=== PATIENT | male | born 1960 | race Hispanic/Latino ===

== ENCOUNTER 2018-06-27 08:41 | Emergency (ER) | payer OTHER, SELFPAY ==
--- NOTE | 2018-06-27 10:18 | RAD REPORT ---
EXAM DESCRIPTION: RAD - Knee Left 3 View - 06/27/2018 9:36 am CLINICAL HISTORY: PAIN COMPARISON: No comparisonsNo comparisons FINDINGS: A small suprapatellar joint effusion is seen. No acute fracture or dislocation is present. Prominent osteophyte projects off the superior pole the patella.
--- NOTE | 2018-06-27 10:45 | ER ---
Nurse's Notes [facility] Name: Alejandro Kendall Age: 57 yrs Sex: Male : 1960 Arrival Date: 06/27/2018 Time: 08:44 Bed 8 Private MD: None, None Diagnosis: Pain in left knee Presentation: 06/27 09:01 Presenting complaint: Patient states: L knee pain x 2 months after fall. ROM intact. ss Transition of care: patient was not received from another setting of care. Onset of symptoms was April 2018. Risk Assessment: Do you want to hurt yourself or someone else? Patient reports no desire to harm self or others. Initial Sepsis Screen: Does the patient meet any 2 criteria? No. Patient's initial sepsis screen is negative. Does the patient have a suspected source of infection? No. Patient's initial sepsis screen is negative. Care prior to arrival: None. 09:01 Method Of Arrival: Ambulatory ss 09:01 Acuity: EUFEMIA 4 ss Historical: - Allergies: 09:04 No Known Allergies; ss - Home Meds: 09:04 None [Active]; ss - PMHx: 09:04 None; ss - PSHx: 09:04 Hernia repair; ss - Immunization history:: Adult Immunizations up to date. - Social history:: Smoking status: Patient/guardian denies using tobacco. - Ebola Screening: : Patient denies exposure to infectious person Patient denies travel to an Ebola-affected area in the 21 days before illness onset. Screenin:06 Abuse screen: Denies threats or abuse. Denies injuries from another. Nutritional ss screening: No deficits noted. Tuberculosis screening: Never had TB. Fall Risk None identified. Assessment: 09:06 General: Appears in no apparent distress. comfortable, Behavior is calm, cooperative, ss Denies fever, feeling ill, fatigue, chills. Pain: Complains of pain in left knee Pain currently is 7 out of 10 on a pain scale. at worst was 10 out of 10 on a pain scale. Pain began "2 months ago" Is continuous, Aggravated by standing over long periods of time. Neuro: Level of Consciousness is awake, alert, obeys commands, Oriented to person, place, time, situation. Cardiovascular: Heart tones S1 S2 present Capillary refill < 3 seconds is brisk in bilateral fingers Patient's skin is warm and dry. Respiratory: Airway is patent Trachea midline Respiratory effort is even, unlabored, Respiratory pattern is regular, symmetrical. GI: Patient currently denies abdominal pain, diarrhea, nausea, vomiting. : No deficits noted. EENT: Throat is clear. Derm: Skin is intact, is healthy with good turgor, Skin is pink, warm \\T\\ dry. normal. Musculoskeletal: Circulation, motion, and sensation intact. Capillary refill < 3 seconds, is brisk, in bilateral fingers. Range of motion: intact in all extremities, Swelling absent. 10:05 Reassessment: Patient appears in no apparent distress at this time. Patient and/or ss family updated on plan of care and expected duration. Pain level reassessed. Patient is alert, oriented x 3, equal unlabored respirations, skin warm/dry/pink. Vital Signs: 09:04 BP 138 / 74; Pulse 73; Resp 16; Temp 97.0(TE); Pulse Ox 98% on R/A; Weight 102.06 kg; ss Height 5 ft. 10 in. (177.80 cm); Pain 10/10; 09:04 Body Mass Index 32.28 (102.06 kg, 177.80 cm) ss ED Course: 08:44 Patient arrived in ED. mr 08:44 None, None is Private Physician. mr 08:50 [facility] pm1 08:50 Kenneth Markham MD is Attending Physician. pm1 09:01 Do Vines, IVANA is Primary Nurse. ss 09:02 Triage completed. ss 09:04 Arm band placed on right wrist. ss 09:06 Patient has correct armband on for positive identification. Bed in low position. Call ss light in reach. 09:36 X-ray completed. Portable x-ray completed in exam room. Patient tolerated procedure mh1 well. 09:36 Knee Left 3 View XRAY In Process Unspecified. EDMS 10:44 Shashank Gupta MD is Referral Physician. pm1 10:56 No provider procedures requiring assistance completed. Patient did not have IV access ss during this emergency room visit. 10:58 Kenji wrap to left knee. ss Administered Medications: 10:50 Drug: Motrin 600 mg Route: PO; ss 10:56 Follow up: Response: Medication administered at discharge. Outcome: 10:44 Discharge ordered by . pm1 10:56 Discharged to home ambulatory. 10:56 Condition: good 10:56 Discharge instructions given to patient, Instructed on discharge instructions, follow up and referral plans. medication usage, Demonstrated understanding of instructions, follow-up care, medications, Pt verbalized understanding importance of following up with ortho specialist, but states since he doesn't have insurance he may not be able to afford the exam and may not follow up. Pt was hoping to have MRI obtained of knee in the ER. Pt educated on local community resources/ clinics. 10:58 Patient left the ED. ss Signatures: Dispatcher [employer] EDMI Gabriella Fajardo mr MartinezJazlyn 1 Do Vines, IVANA RN Jose J Morin, GENE TERMINATION CLERK pm1
--- NOTE | 2018-06-27 10:45 | EDPHYS ---
Physician Documentation [facility] Name: Alejandro Kendall Age: 57 yrs Sex: Male : 1960 Arrival Date: 06/27/2018 Time: 08:44 Bed 8 Private MD: None, None ED Physician Kenneth Markham HPI: 06/27 09:04 This 57 yrs old Male presents to ER via Ambulatory with complaints of Left pm1 knee pain. 09:04 The patient presents with pain. The complaints affect the left knee. Context: The pm1 problem was sustained at home, resulted from the patient falling, the patient can fully bear weight, the patient is able to ambulate, Problem is a result from a previous injury: occurred 2 months ago. Fall with pain to medial aspect of left knee since fall injury. Onset: The symptoms/episode began/occurred 2 month(s) ago. Modifying factors: The symptoms are alleviated by nothing. the symptoms are aggravated by use throughout the day. Associated signs and symptoms: Pertinent negatives calf tenderness, fever, numbness, swelling, tingling, warmth. Treatment prior to arrival includes: no previous treatment. Severity of symptoms: in the emergency department the symptoms are unchanged. The patient has not recently seen a physician. Historical: - Allergies: 09:04 No Known Allergies; ss - Home Meds: 09:04 None [Active]; ss - PMHx: 09:04 None; ss - PSHx: 09:04 Hernia repair; ss - Immunization history:: Adult Immunizations up to date. - Social history:: Smoking status: Patient/guardian denies using tobacco. - Ebola Screening: : Patient denies exposure to infectious person Patient denies travel to an Ebola-affected area in the 21 days before illness onset. ROS: 09:04 Constitutional: Negative for fever, chills, and weight loss, Eyes: Negative for injury, pm1 pain, redness, and discharge, ENT: Negative for injury, pain, and discharge, Neck: Negative for injury, pain, and swelling, Cardiovascular: Negative for chest pain, palpitations, and edema, Respiratory: Negative for shortness of breath, cough, wheezing, and pleuritic chest pain, Abdomen/GI: Negative for abdominal pain, nausea, vomiting, diarrhea, and constipation, Back: Negative for injury and pain. 09:04 Skin: Negative for injury, rash, and discoloration, Neuro: Negative for headache, weakness, numbness, tingling, and seizure. 09:04 MS/extremity: Positive for pain, of the left knee, Negative for decreased range of motion, deformity, laceration, swelling. Exam: 09:04 Constitutional: This is a well developed, well nourished patient who is awake, alert, pm1 and in no acute distress. Head/Face: Normocephalic, atraumatic. Neck: Trachea midline, no thyromegaly or masses palpated, and no cervical lymphadenopathy. Supple, full range of motion without nuchal rigidity, or vertebral point tenderness. No Meningismus. Chest/axilla: Normal chest wall appearance and motion. Nontender with no deformity. No lesions are appreciated. Cardiovascular: Regular rate and rhythm with a normal S1 and S2. No gallops, murmurs, or rubs. Normal PMI, no JVD. No pulse deficits. Respiratory: Lungs have equal breath sounds bilaterally, clear to auscultation and percussion. No rales, rhonchi or wheezes noted. No increased work of breathing, no retractions or nasal flaring. Abdomen/GI: Soft, non-tender, with normal bowel sounds. No distension or tympany. No guarding or rebound. No evidence of tenderness throughout. Back: No spinal tenderness. No costovertebral tenderness. Full range of motion. Skin: Warm, dry with normal turgor. Normal color with no rashes, no lesions, and no evidence of cellulitis. 09:04 Musculoskeletal/extremity: Extremities: noted in the left knee: There is no evidence of decreased ROM, deformity, negative valgus, varus test stress test. Negative drawer test. negative davidson, negative lachmann, ROM: full active range of motion, in the left knee, full passive range of motion, in the left knee, Circulation is intact in all extremities. Sensation intact. 09:04 Neuro: Orientation: is normal, Motor: is normal, moves all fours. 09:04 Musculoskeletal/extremity: DVT Exam: No signs of deep vein thrombosis. no pain, no pm1 swelling, no tenderness, no appreciated bluish discoloration, no erythema, no increased warmth. Vital Signs: 09:04 BP 138 / 74; Pulse 73; Resp 16; Temp 97.0(TE); Pulse Ox 98% on R/A; Weight 102.06 kg; Height 5 ft. 10 in. (177.80 cm); Pain 06/25; 09:04 Body Mass Index 32.28 (102.06 kg, 177.80 cm) MDM: 08:50 Patient medically screened. pm1 09:12 Data reviewed: vital signs. Data interpreted: Pulse oximetry: on room air is 98 %. pm1 Interpretation: normal. 10:43 Counseling: I had a detailed discussion with the patient and/or guardian regarding: the pm1 historical points, exam findings, and any diagnostic results supporting the discharge/admit diagnosis, radiology results, the need for outpatient follow up, for definitive care, a orthopedic surgeon, to return to the emergency department if symptoms worsen or persist or if there are any questions or concerns that arise at home. 06/27 09:03 Order name: Knee Left 3 View XRAY; Complete Time: 10:33 pm1 06/27 10:44 Order name: Kenji wrap-joint; Complete Time: 10:55 pm1 Administered Medications: 10:50 Drug: Motrin 600 mg Route: PO; 10:56 Follow up: Response: Medication administered at discharge. Disposition: 06/27/18 10:44 Discharged to Home. Impression: Pain in left knee. - Condition is Stable. - Discharge Instructions: Knee Pain. - Medication Reconciliation Form, Thank You Letter, Prescription Opioid Use form. - Follow up: Emergency Department; When: As needed; Reason: Worsening of condition. Follow up: Shashank Gupta MD; When: 2 - 3 days; Reason: Recheck today's complaints, Continuance of care, Re-evaluation by your physician. - Problem is new. - Symptoms have improved. - Notes: Take ibuprofen or tylenol as needed for pain Addendum: 06/28/2018 13:39 Co-signature as Attending Physician, Kenneth Markham MD I agree with the assessment and k dr plan of care. Signatures: Dispatcher [employer] EDKenneth Gutierrez MD MD [facility] Do Vines RN RN ss Jose J Larsen, GENE [employer]OPH[employer]ICAL [employer]ORATORY SUPERVISOR pm1 Corrections: (The following items were deleted from the chart) 06/27 10:58 10:44 06/27/2018 10:44 Discharged to Home. Impression: Pain in left knee. Condition is ss Stable. Forms are Medication Reconciliation Form, Thank You Letter, Antibiotic Education, Prescription Opioid Use. Follow up: Emergency Department; When: As needed; Reason: Worsening of condition. Follow up: Shashank Gupta; When: 2 - 3 days; Reason: Recheck today's complaints, Continuance of care, Re-evaluation by your physician. Problem is new. Symptoms have improved. pm1
[2018-06-27] MEDS ORDERED: IBUPROFEN 200 MG TAB PO ONE (10:56)
== END 2018-06-27 10:58 | disposition home or self-care (01) ==
LOC: ER 08:41
DX: M25.562 Pain in left knee (principal)
CPT/HCPCS: 99283